=== PATIENT | male | born 1975 | race Hispanic/Latino ===

== ENCOUNTER → 2018-04-26 | Day surgery (SDC) | payer OTHER ==
[~2018-04-26] VITALS: Ht 170.2 cm; Wt 112.0 kg
[~2018-04-26] MED LIST: ACID REDUCER150 MG PO; ADVAIR 500-501 EACH INH; CEPHALEXIN500 M3 PO; PROAIR HFA8.5 GM INH; PROTONIX40 M3 PO; SINGULAIR10 M1 PO; XYZAL5 M1 PO
--- NOTE | 2018-04-26 09:40 | Operative Report ---
Operative/Inv Procedure Report Surgery Date: 04/26/18 Name of Procedure: circumcision Pre-Operative Diagnosis: Phimosis Post-Operative Diagnosis: Same Estimated Blood Loss: scant Surgeon/Collar Pointer: Aquiles FORD,Yosi Gallegos Anesthesia: laryngeal mask airway Drains: None Specimens: Foreskin Complications: None Condition: Stable Operative Indication: This patient was seen in the office with a phimosis and recurrent episodes of balanitis. The risks, benefits, alternatives and possible complications of circumcision were discussed and he elected to proceed with having that procedure to Operative/Procedure Note Note: Patient was taken to the operating room and identified. He was placed in the supine position on the operating table. A timeout was executed appropriately with the patient awake. Gen. anesthesia was induced via LMA. He was then prepped and draped in usual fashion for penile surgery. A surgical pause was executed appropriately. With the foreskin in the usual position a circumferential incision was made in the skin at the level of the killian. Foreskin was then retracted and a second circumferential incision was made in the mucosal surface of the foreskin approximately 1 cm proximal to the killian. A dorsal slit was made at the 12 o'clock position to connect the 2 incisions. Using sharp dissection the skin between the 2 incisions was excised. Hemostasis is obtained electrocautery. No significant bleeding was noted at this time. The 2 free skin edges were then approximated with 3-0 chromic interrupted sutures. Sutures were first placed in the 12:00, 6:00, 3:00 and 9:00 positions. The 6:00 suture was a horizontal mattress suture to control the frenular vessels. Within each quadrant 3-4 sutures of 3-0 chromic were placed. Following the procedure no bleeding was noted from the incision. A sterile compressive dressing was placed. The patient tolerated the procedure well. At its completion was taken to the recovery room. Findings: Phimosis Discharge Disposition: PACU
== END ==
LOC: STS 01:23
DX: N47.1 Phimosis (principal); N48.1 Balanitis; B19.20 Unspecified viral hepatitis C without hepatic coma; J45.909 Unspecified asthma, uncomplicated; F17.200 Nicotine dependence, unspecified, uncomplicated; K21.9 Gastro-esophageal reflux disease without esophagitis
CPT/HCPCS: J0690; J2001; J2250